=== PATIENT | male | born 2000 | race Caucasian/White ===

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

== ENCOUNTER 2021-07-01 14:15 | Emergency (ER) | payer OTHER, SELFPAY ==
[2021-07-01] VITALS (8 sets, daily range): BP systolic 116–126; BP diastolic 56–67; PULSE 62–88; RESP 19; TEMP 36.9; O2SAT 97–100; BMI 19.5
--- NOTE | 2021-07-01 14:43 | DI.RAD.S_ITS ---
PROCEDURE: XR CHEST 2V INDICATIONS: CP, SOB TECHNIQUE: 2 views of the chest were acquired. COMPARISON: None. FINDINGS: Surgical changes and devices: None. Lungs and pleura: Lungs are clear. No pleural effusions or pneumothorax. Mediastinum: Mediastinal contours are normal. Heart size is normal. Bones and chest wall: No suspicious bony abnormalities. Soft tissues appear unremarkable. IMPRESSION: Normal chest x-ray Approved by: Viktor Thomas M.D. on 07/01/2021 at 14:30
[2021-07-01] MEDS: ACETAMINOPHEN 325 MG TABLET 650 MG PO (14:53)
--- NOTE | 2021-07-01 14:58 | PC.NURSE ---
pt states 7-8 days ago began with a discomfort to R side of lung/chest area. pt states SOB as well that is constant and worse lying flat. pt with EKG completed and to xray. covid swab sent
[2021-07-01 15:03] LABS: COVID19 -Nasal RAPID Negative (Negative)
--- NOTE | 2021-07-03 16:58 | ED.CHESTPAIN ---
HPI - Chest Pain <Bipin Irving PA-C - Last Filed: 07/03/21 17:15> General Chief Complaint: Chest Pain Stated Complaint: Chest pains, SOB Time Seen by Provider: 07/01/21 14:31 Source: patient Mode of arrival: Family Vehicle Limitations: no limitations History of Present Illness HPI narrative: 20-year-old male with no reported significant past medical history presents to the ED with 1 week of left-sided chest tightness. Patient states that he returned from [place] 5 days ago, but while in [place] he developed left-sided chest tightness after a night of heavy drinking and being hung over. Patient also endorses that he felt anxious during the hangover, which then resolved in a few hours. Patient denies fever, chills, shortness of breath, nausea, vomiting, abdominal pain, dysuria, lightheadedness, dizziness, syncope. Denies family history of sudden or early cardiac deaths. Related Data Previous Rx's Medication Instructions Recorded loratadine 10 mg capsule 10 mg PO DAILY #20 cap 11/22/19 prednisone 20 mg tablet 20 mg PO DAILY #5 tab 11/22/19 azithromycin 250 mg tablet See Rx Instructions PO .COMPLEX #6 10/29/20 tab Allergies Allergy/AdvReac Type Severity Reaction Status Date / Time No Known Drug Allergies Allergy Verified 07/01/21 14:29 Review of Systems <Bipin Irving PA-C - Last Filed: 07/03/21 17:15> Constitutional Constitutional: Denies chills, Denies fatigue, Denies fever(s), Denies frequent falls, Denies lethargy and Denies weakness Eyes Eyes: Denies change in vision, Denies eye discharge, Denies irritation and Denies loss of vision ENT Ears, Nose, Mouth, and Throat: Denies change in voice, Denies dizziness, Denies neck pain, Denies sore throat and Denies throat swelling Cardiovascular Cardiovascular: Denies chest pain, Denies irregular heart rhythm, Denies lightheadedness, Denies palpitations, Denies dyspnea, Denies dyspnea on exertion and Denies orthopnea Respiratory Respiratory: Denies cough, Denies dyspnea, Denies dyspnea on exertion and Denies wheezing Gastrointestinal Gastrointestinal: Denies abdominal pain, Denies change in bowel habits, Denies diarrhea, Denies nausea and Denies vomiting Musculoskeletal Musculoskeletal: Denies neck pain and Denies numbness Integumentary/Breasts Skin/Breast: Denies pruritus, Denies erythema, Denies rash and Denies wounds Neurologic Neurologic: Denies behavioral changes, Denies confusion, Denies dizziness, Denies frequent falls, Denies loss of vision, Denies numbness and Denies weakness Psychiatric Psychiatric: Denies anxiety, Denies behavioral changes, Denies confusion, Denies depression, Denies homicidal ideation and Denies suicidal ideation Endocrine Endocrine: Denies fatigue, Denies flushing and Denies palpitations Hematologic/Lymphatic Hematologic/Lymphatic: Denies easy bruising Allergic/Immunologic Allergic/Immunologic: Denies urticaria, Denies throat swelling and Denies wheezing Patient History <Bipin Irving PA-C - Last Filed: 07/03/21 17:15> Medical History (Updated 07/01/21 @ 15:39 by Bipin Irving PA-C) Pharyngitis Skin rash Social History Smoking Status: Former smoker Smoking Status: Former smoker tobacco type: cigarettes alcohol intake frequency: 0-2 drinks per day Substance Use Type: does not use Exam <Bipin Irving PA-C - Last Filed: 07/03/21 17:15> Initial Vital Signs Initial Vital Signs: Vital Signs Blood Pressure 126/67 07/01/21 14:21 Const General: cooperative HENMT Head: normocephalic and atraumatic Ears: external ears normal and TM's normal bilaterally Nose: external nose normal and No nasal discharge Face and sinus: sinuses nontender, face symmetric, no sinus tenderness and No dry mucous membranes Mouth: oral mucosae normal and moist mucous membranes Teeth and gingiva: dentition normal Throat: tonsils normal and uvula midline Eyes General: appearance normal, both eyes and all related structures Eyelids: eyelids normal Conjunctivae: conjunctivae normal Sclera: sclerae normal Pupils: PERRL EOM: EOM intact bilaterally Neck Neck: normal visual inspection, trachea midline, No lymphadenopathy, No midline deformity and No JVD Lymphatic: No lymphedema Chest Chest: normal inspection of the chest Resp Effort & Inspection: normal respiratory effort, able to speak in complete sentences, no respiratory distress and no use of accessory muscles Auscultation: clear to auscultation bilaterally, no rales, no rhonchi and no wheezes Cardio Rate: regular rate Rhythm: regular rhythm Heart Sounds: no click, no gallops, no murmurs and no rubs Pulses: normal peripheral pulses GI Inspection: non-distended Palpation: soft, no hepatosplenomegaly, No guarding, No pulsatile mass and No tender Auscultation: normal bowel sounds Back/Spine/Pelvis Back: No CVA tenderness Cervical Spine: cervical ROM normal and No pain with cervical ROM Thoracic/Lumbar Spine: thoracic and lumbar spine normal to inspection Skin General: no rashes or lesions noted, No jaundice and No petechiae Neuro General: patient alert, patient oriented x3, gait normal and no focal motor deficits Speech: speech normal Extrem General: full ROM, no clubbing, cyanosis or edema, no pedal edema and no calf tenderness Psych Appearance: well kempt Mental Status: mental status grossly normal Attitude: cooperative Thought Content: normal and suicidality Judgment: judgment good <Ida Almeida DO - Last Filed: 07/05/21 07:40> Initial Vital Signs Initial Vital Signs: Vital Signs Blood Pressure 126/67 07/01/21 14:21 Course <Bipin Irving PA-C - Last Filed: 07/03/21 17:15> Course Course Narrative: X-ray and EKG without acute processes. COVID negative.Patient's symptoms improved with Tylenol. Will discharge home with ED return precautions Orders Ordered: Discontinued Medications Acetaminophen (Acetaminophen 325 Mg Tablet) 650 mg PO NOW ONE Stop: 07/01/21 14:44 Last Admin: 07/01/21 14:53 Dose: 650 mg Documented by: MARIO ALBERTO <Ida Almeida DO - Last Filed: 07/05/21 07:40> Orders Ordered: Discontinued Medications Acetaminophen (Acetaminophen 325 Mg Tablet) 650 mg PO NOW ONE Stop: 07/01/21 14:44 Last Admin: 07/01/21 14:53 Dose: 650 mg Documented by: MARIO ALBERTO MDM - Chest Pain <Bipin Irving PA-C - Last Filed: 07/03/21 17:15> Medical Records Data Attestation: I reviewed the patient's medical records. Lab Data Attestation: I reviewed the patient's lab results. Lab results narrative: COVID negative Labs: Lab Results 07/01/21 Range/Units 14:32 SARS-CoV-2 (PCR) Negative (Negative) Imaging Data Chest x-ray: My Impression: no acute cardiopulmonary processes. Radiologist's Impression: PROCEDURE:? XR CHEST 2V ? INDICATIONS:? CP, SOB ? TECHNIQUE:? 2 views of the chest were acquired.? ? COMPARISON:? None. ? FINDINGS:? ? Surgical changes and devices:? None.? ? Lungs and pleura:? Lungs are clear.? No pleural effusions or pneumothorax.? ? Mediastinum:? Mediastinal contours are normal.? Heart size is normal.? ? Bones and chest wall:? No suspicious bony abnormalities.? Soft tissues appear unremarkable.? ? IMPRESSION:? Normal chest x-ray ? ? ? Approved by: Viktor Thomas M.D. on 07/01/2021 at 14:30? ECG Data Interpretation: Normal sinus rhythm, no axis deviation, no ST T changes MDM Narrative Medical decision making narrative: 20-year-old male with no significant reported past medical history presents to the ED with 7 days of left-sided chest tightness. Concern for ACS versus pneumonia versus conid-19 vs GERD versus musculoskeletal pain. lungs bilaterally clear to auscultation on exam. Unlikely pneumonia. Will order EKG, chest x-ray to rule out ACS, pna. Will order a covid test. Will give Tylenol for pain. Will reassess. Likely discharge home. <Ida Almeida, DO - Last Filed: 07/05/21 07:40> Lab Data Labs: Lab Results 07/01/21 Range/Units 14:32 SARS-CoV-2 (PCR) Negative (Negative) ECG Data Interpretation: Normal sinus rhythm, no axis deviation, no ST T changes LEXY normal sinus rhythm rate 75 OR interval 130 QRS [address] changes no T-wave inversions no priors to compare Discharge Plan Departure Patient Disposition: Home Clinical Impression: Chest pain Qualifiers: Chest pain type: unspecified Qualified Code(s): R07.9 - Chest pain, unspecified Instructions: DI for Chest Pain Activity Restrictions/Additional Instructions: Follow-up with your registration manager as soon as possible. Your test was COVID negative in the ED today. Take antacids for stomach symptoms. Return to the ED if increasing chest pain or shortness of breath. Prescriptions: No Action prednisone 20 mg tablet 20 mg PO DAILY Qty: 5 RF: 0 loratadine 10 mg capsule 10 mg PO DAILY Qty: 20 RF: 0 azithromycin 250 mg tablet See Rx Instructions PO .COMPLEX Qty: 6 RF: 0 Referrals: Dov Pires MD [Primary Care Provider] - <Ida Almeida DO - Last Filed: 07/05/21 07:40> Cosign ED Attending Cosignature Attestation: I was immediately available in the department for consultation. Documentation has been reviewed. I agree with assessment and plan.
== END 2021-07-01 16:16 | disposition home or self-care (01) ==
PROVIDERS: Emergency Medicine; Emergency Provider Student in an Organized Health Care Education/Training Program; Family Provider Family Medicine; PCP Family Medicine
DX: R07.9 Chest pain, unspecified (principal); R06.02 Shortness of breath; Z20.822 Contact with and (suspected) exposure to COVID-19
CPT/HCPCS: 71046; 87635; 93005; 99284; C9803

== ENCOUNTER → 2022-02-22 12:35 | Outpatient (CLI) | payer OTHER, SELFPAY | PROVIDERS: Family Provider Family Medicine; PCP Family Medicine; Visit Provider Nurse Practitioner Family | DX: J02.9 Acute pharyngitis, unspecified (principal) | CPT/HCPCS: 87070 ==

== ENCOUNTER 2024-09-28 14:33 | Emergency (ER) | payer OTHER, SELFPAY ==
[2024-09-28 14:36] VITALS: BP 113/63; PULSE 64; RESP 16; TEMP 36.4; O2SAT 100; BMI 19.5
--- NOTE | 2024-09-28 14:40 | DI.RAD.S_ITS ---
PROCEDURE: XR CHEST 1V INDICATIONS: chest pain TECHNIQUE: One view of the chest was acquired. COMPARISON: [facility], CR, XR CHEST 2V, 07/01/2021, 14:48. FINDINGS: Surgical changes and devices: None. Lungs and pleura: Lungs are clear on the right but there appears to be a mild or early pneumonia left upper lobe tracking upwards and outwards from the upper left hilum.. No pleural effusions or pneumothorax. Mediastinum: Mediastinal contours appear normal. Heart size is normal. Bones and chest wall: No suspicious bony lesions. Overlying soft tissues appear unremarkable. IMPRESSION: Mild or early left upper lobe pneumonia, and central obstructing lesion would be unlikely in this young patient but follow-up plain films for resolution would be recommended. No effusion seen. Dictated by: Alexander Saavedra M.D. on 09/28/2024 at 15:27 Approved by: Alexander Saavedra M.D. on 09/28/2024 at 15:28
--- NOTE | 2024-09-28 14:44 | EKG_ITS ---
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
[2024-09-28 15:08] LABS: Add Manual Diff / Slide Review NO; Basophils Absolute Auto 100 /uL (0-100); Eosinophils Absolute Auto 300 /uL (0-450); Eosinophils Percent Auto 5.1 % (2-4); Hematocrit 40.1 % (41-53); Hemoglobin 13.8 g/dL (13.5-17.5); Lymphocytes Absolute Auto 1300 /uL (1100-4500); Lymphocytes Percent Auto 25.5 % (25-40); Mean Corpuscular HGB Conc 34.4 % (30-36); Mean Corpuscular Hemoglobin 30.1 PG (26-34); Mean Corpuscular Volume 87.5 fL (80-100); Monocytes Absolute Auto 500 /uL (0-900); Monocytes Percent Auto 10.1 % (3-14); Neutrophils Absolute Auto 3100 /uL (1500-7000); Neutrophils Percent Auto 58.3 % (50-75); Platelet Count 232 X10^3/uL (150-400); Red Blood Cell Count 4.58 X10^6/uL (4.5-5.9); Red Cell Distribution Width 11.4 % (11.6-14.8); White Blood Cell Count 5.2 X10^3/uL (4.5-11.0)
--- NOTE | 2024-09-28 15:11 | ED.CHESTPAIN ---
HPI - Chest Pain <Oriana Fischer PA-C - Last Filed: 09/28/24 18:05> General Chief Complaint: Chest Pain Stated Complaint: chest pain Time Seen by Provider: 09/28/24 15:11 History of Present Illness HPI narrative: Erick Perales is a pleasant 24-year-old male with no reported past medical history who presents to the emergency department for increasing episodes of chest pain over the last few days. Patient states over the last 2 years he gets episodes of sharp chest pain that radiate up into his jaw. States that these episodes are completely on precipitated and last for about 3-10 minutes and then resolve on their own. States that these episodes become more frequent in the last few days and today he would 5 of these episodes. He denies any known triggers. States that he is getting over a cold. Denies any personal or family history of cardiac disease, no family history of sudden cardiac . Symptoms occur at rest. He denies any problems with his breathing, cough, fevers, chills, abdominal pain, nausea, vomiting. He was previously evaluated for 1 of these episodes in 2020. Denies alcohol or drug use, he does vape daily. Related Data Previous Rx's Medication Instructions Recorded azithromycin 250 mg tablet See Rx Instructions PO .COMPLEX #6 02/22/22 tabs azithromycin 250 mg tablet See Rx Instructions PO .COMPLEX #6 12/03/22 tabs doxycycline hyclate 100 mg capsule 100 mg PO BID 5 days #10 caps 09/28/24 Allergies Allergy/AdvReac Type Severity Reaction Status Date / Time amoxicillin AdvReac Mild Verified 12/03/22 11:34 Review of Systems <Oriana Fischer PA-C - Last Filed: 09/28/24 18:05> Review of Systems ROS Unobtainable: All systems reviewed & are unremarkable except as noted in HPI and below Patient History <Oriana Fischer PA-C - Last Filed: 09/28/24 18:05> Medical History Pharyngitis Skin rash Social History Smoking Status: Former smoker Smoking Status: Former smoker tobacco type: cigarettes alcohol intake frequency: 0-2 drinks per day Substance Use Type: does not use Exam <Oriana Fischer PA-C - Last Filed: 09/28/24 18:05> Narrative Exam Narrative: GENERAL: 24 year old patient appears stated age. Well-developed patient, in no acute distress. HEAD: Atraumatic. Normocephalic. EYES: PERRL. Extraocular motions intact. No scleral icterus. No injection or drainage. ENT: Nose without bleeding, purulent drainage. Throat without erythema, tonsillar hypertrophy or exudate. Airway patent. NECK: Trachea midline. Cervical ROM intact. CARDIOVASCULAR: Regular rate and rhythm. RESPIRATORY: ?Nonlabored respirations. ?Speaking in clear, full sentences. ?Clear to auscultation. Breath sounds equal bilaterally. No wheezes, rales, or rhonchi. ? GASTROINTESTINAL: Abdomen soft, non-tender, nondistended. EXTREMITIES: No edema or joint tenderness. BACK: Nontender without deformity or crepitance. No flank tenderness. NEURO: AOx3. ?Clear speech. ?Moves all 4 extremities appropriately. SKIN: No rash or erythema of visible areas Initial Vital Signs Initial Vital Signs: Vital Signs Temperature 97.6 F 09/28/24 14:36 Pulse Rate 64 09/28/24 14:36 Respiratory Rate 16 09/28/24 14:36 Blood Pressure 113/63 09/28/24 14:36 Pulse Oximetry 100 09/28/24 14:36 Oxygen Delivery Method Room Air 09/28/24 14:36 <Daniel Montes MD - Last Filed: 09/28/24 19:36> Initial Vital Signs Initial Vital Signs: Vital Signs Temperature 97.6 F 09/28/24 14:36 Pulse Rate 64 09/28/24 14:36 Respiratory Rate 16 09/28/24 14:36 Blood Pressure 113/63 09/28/24 14:36 Pulse Oximetry 100 09/28/24 14:36 Oxygen Delivery Method Room Air 09/28/24 14:36 Scores <Oriana Fischer PA-C - Last Filed: 09/28/24 18:05> HEART Score Heart Score history: Slightly Suspicious Heart Score EKG: Normal Heart Score Age: < 45 years old Heart Score risk factors: 1-2 risk factors Heart Score troponin: < or = to normal limit Heart Score Total: 1 PERC Score Age greater than or equal to 50 years: No Heart rate greater than or equal to 100 bpm: No Room Air O2 Sat less than 95%: No Unilateral leg swelling: No Recent trauma or surgery: No Hemoptysis: No Prior PE or DVT: No Hormone Use: No Total PERC Score: 0 <Daniel Montes MD - Last Filed: 09/28/24 19:36> HEART Score Heart Score Total: 1 PERC Score Total PERC Score: 0 Course <Oriana Fischer PA-C - Last Filed: 09/28/24 18:05> Orders Ordered: ED Orders 09/28/24 14:40 XR chest 1V Stat EKG-12 Lead Stat 09/28/24 14:57 Complete Blood Count AUTO DIFF Stat Comprehensive Metabolic Panel Stat Lipase Stat Magnesium Stat NT-proBNP (BNP-Adult 18+) Stat PTT Partial Thromboplastin Mata Stat Prothrombin Time INR Stat Troponin & CK Cardiac Panel Stat 09/28/24 16:45 Trop I [Troponin I] Stat Discontinued Medications Doxycycline Hyclate (Doxycycline Hyclate 100 Mg Tablet) 100 mg PO NOW ONE Stop: 09/28/24 18:00 Last Admin: 09/28/24 18:03 Dose: 100 mg Documented By: BEA Sodium Chloride (Normal Saline 0.9%) 500 mls @ 500 mls/hr IV BOLUS ONE Stop: 09/28/24 16:52 Last Infusion: 09/28/24 17:28 Dose: Infused Documented By: Admin: 09/28/24 16:26 Dose: 500 mls/hr Documented By: BEA Vital Signs Vital signs: Vital Signs - 8 hr 09/28/24 14:36 09/28/24 15:30 09/28/24 16:00 Temperature 97.6 F Pulse Rate 64 64 60 Respiratory Rate 16 22 21 Blood Pressure 113/63 95/52 L 98/56 L Pulse Oximetry 100 99 99 Oxygen Delivery Method Room Air Room Air Room Air 09/28/24 17:00 09/28/24 17:50 09/28/24 18:14 Temperature 98.2 F Pulse Rate 59 L 53 L 55 L Respiratory Rate 19 20 20 Blood Pressure 103/57 L 94/51 L 98/55 L Pulse Oximetry 99 98 99 Oxygen Delivery Method Room Air Room Air Room Air <Daniel Montes MD - Last Filed: 09/28/24 19:36> Orders Ordered: ED Orders 09/28/24 14:40 XR chest 1V Stat EKG-12 Lead Stat 09/28/24 14:57 Complete Blood Count AUTO DIFF Stat Comprehensive Metabolic Panel Stat Lipase Stat Magnesium Stat NT-proBNP (BNP-Adult 18+) Stat PTT Partial Thromboplastin Mata Stat Prothrombin Time INR Stat Troponin & CK Cardiac Panel Stat 09/28/24 16:45 Trop I [Troponin I] Stat Discontinued Medications Doxycycline Hyclate (Doxycycline Hyclate 100 Mg Tablet) 100 mg PO NOW ONE Stop: 09/28/24 18:00 Last Admin: 09/28/24 18:03 Dose: 100 mg Documented By: RB Sodium Chloride (Normal Saline 0.9%) 500 mls @ 500 mls/hr IV BOLUS ONE Stop: 09/28/24 16:52 Last Infusion: 09/28/24 17:28 Dose: Infused Documented By: Admin: 09/28/24 16:26 Dose: 500 mls/hr Documented By: BEA Vital Signs Vital signs: Vital Signs - 8 hr 09/28/24 14:36 09/28/24 15:30 09/28/24 16:00 Temperature 97.6 F Pulse Rate 64 64 60 Respiratory Rate 16 22 21 Blood Pressure 113/63 95/52 L 98/56 L Pulse Oximetry 100 99 99 Oxygen Delivery Method Room Air Room Air Room Air 09/28/24 17:00 09/28/24 17:50 09/28/24 18:14 Temperature 98.2 F Pulse Rate 59 L 53 L 55 L Respiratory Rate 19 20 20 Blood Pressure 103/57 L 94/51 L 98/55 L Pulse Oximetry 99 98 99 Oxygen Delivery Method Room Air Room Air Room Air MDM - Chest Pain <Oriana Fischer PA-C - Last Filed: 09/28/24 18:05> Medical Records Data Attestation: I reviewed the patient's medical records. Medical records narrative: ED visit 07/03/2021 for chest pain. Negative EKG and x-ray at that time. Lab Data 09/28/24 14:57 09/28/24 14:57 Labs: Lab Results 09/28/24 09/28/24 Range/Units 14:57 16:45 WBC 5.2 (4.5-11.0) X10^3/uL RBC 4.58 (4.5-5.9) X10^6/uL Hgb 13.8 (13.5-17.5) g/dL Hct 40.1 L (41-53) % MCV 87.5 (80-100) fL MCH 30.1 (26-34) PG MCHC 34.4 (30-36) % RDW 11.4 L (11.6-14.8) % Plt Count 232 (150-400) X10^3/uL Neut % (Auto) 58.3 (50-75) % Lymph % (Auto) 25.5 (25-40) % Lane % (Auto) 10.1 (3-14) % Eos % (Auto) 5.1 H (2-4) % Baso % (Auto) 1.0 (0-2) % Neut # (Auto) 3100 (1947-2447) /uL Lymph # (Auto) 1300 (9805-8633) /uL Lane # (Auto) 500 (0-900) /uL Eos # (Auto) 300 (0-450) /uL Baso # (Auto) 100 (0-100) /uL PT 12.2 (9.4-12.5) SECONDS INR 1.1 (0.9-1.3) APTT 32 (25.1-36.5) SECONDS Sodium 137 (137-145) mmol/L Potassium 3.6 (3.4-5.1) mmol/L Chloride 102 (98-107) mmol/L Carbon Dioxide 27 (22-32) mmol/L BUN 13 (9-20) mg/dL Creatinine 0.73 (0.66-1.25) mg/dL Estimated GFR > 60 (>60) mL/min BUN/Creatinine Ratio 17.8 (6-22) Glucose 94 (70-100) mg/dL Calcium 9.1 (8.4-10.2) mg/dL Magnesium 2.0 (1.6-2.3) mg/dL Total Bilirubin 0.5 (0.2-1.3) mg/dL AST 44 (17-59) IU/L ALT 31 (<50) IU/L Alkaline Phosphatase 75 (38-126) U/L Total Creatine Kinase 765 H (55-170) U/L Troponin I < 0.012 < 0.012 (0.01-0.034) ng/mL NT-Pro-B Natriuret Pep 33 (<125) pg/mL Total Protein 7.5 (6.3-8.2) g/dL Albumin 4.6 (3.5-5.0) g/dL Globulin 2.9 (1.7-4.1) g/dL Albumin/Globulin Ratio 1.6 (1.0-2.8) Lipase 44 (23-300) U/L Urine Dip Bedside Urine Glucose Negative Bedside Urine Bilirubin - Negative Bedside Urine Ketone - Negative Urine Specific [place] 1.015 Bedside Urine Occult Blood - Negative Bedside Urine pH 6.5 Bedside Urine Protein - Negative Bedside Urine Urobilinogen - Negative Bedside Urine Nitrite - Negative Bedside Urine Leukocytes - Negative Esterase Imaging Data Chest x-ray: Radiologist's Impression: PROCEDURE: XR CHEST 1V INDICATIONS: chest pain TECHNIQUE: One view of the chest was acquired. COMPARISON: [facility], , XR CHEST 2V, 07/01/2021, 14:48. FINDINGS: Surgical changes and devices: None. Lungs and pleura: Lungs are clear on the right but there appears to be a mild or early pneumonia left upper lobe tracking upwards and outwards from the upper left hilum.. No pleural effusions or pneumothorax. Mediastinum: Mediastinal contours appear normal. Heart size is normal. Bones and chest wall: No suspicious bony lesions. Overlying soft tissues appear unremarkable. IMPRESSION: Mild or early left upper lobe pneumonia, and central obstructing lesion would be unlikely in this young patient but follow-up plain films for resolution would be recommended. No effusion seen. [facility] Narrative Medical decision making narrative: 24-year-old male presents to the emergency department for increased frequency of chest pain episodes. Differential diagnosis includes but is not limited to cardiac arrhythmia, myocarditis, pneumonia, ACS/MA, costochondritis, etc. On exam patient is in no acute distress, nontoxic appearing. Vital signs are all within normal limits. Lungs clear to auscultation, abdomen soft and nontender. He currently is pain-free however experienced an episode of chest pain minutes ago. He is on the environmental monitoring specialist and cardiac labs obtained. Chest x-ray reveals a mild or early left upper lobe pneumonia a central obstructing lesion would be unlikely in this young patient but follow up plain films resolution are recommended. Patient reports that he recently had a cold/viral URI and states his symptoms are improving however pneumonia is possible. He also vapes. Labs reveal normal WBC count, hematocrit and RDW slightly low at 40.1 and 11.4 respectively. 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 We will treat with IV fluids and oral fluids. Troponin is negative x 2. BNP is negative. Normal renal function. Patient's workup overall consistent with left upper lobe pneumonia. We will treat patient as community-acquired pneumonia with doxycycline 100 mg 2 times a day x5 days. Recommended patient has stopped vaping. Stressed the importance of the patient having a repeat chest x-ray in 1 month and prompt follow up with PCP. Patient verbalized understanding of all information and is stable for discharge. Strict ER return precautions discussed. <Daniel Montes MD - Last Filed: 09/28/24 19:36> Lab Data Labs: Lab Results 09/28/24 09/28/24 Range/Units 14:57 16:45 WBC 5.2 (4.5-11.0) X10^3/uL RBC 4.58 (4.5-5.9) X10^6/uL Hgb 13.8 (13.5-17.5) g/dL Hct 40.1 L (41-53) % MCV 87.5 (80-100) fL MCH 30.1 (26-34) PG MCHC 34.4 (30-36) % RDW 11.4 L (11.6-14.8) % Plt Count 232 (150-400) X10^3/uL Neut % (Auto) 58.3 (50-75) % Lymph % (Auto) 25.5 (25-40) % Lane % (Auto) 10.1 (3-14) % Eos % (Auto) 5.1 H (2-4) % Baso % (Auto) 1.0 (0-2) % Neut # (Auto) 3100 (6295-8324) /uL Lymph # (Auto) 1300 (0701-9220) /uL Lane # (Auto) 500 (0-900) /uL Eos # (Auto) 300 (0-450) /uL Baso # (Auto) 100 (0-100) /uL PT 12.2 (9.4-12.5) SECONDS INR 1.1 (0.9-1.3) APTT 32 (25.1-36.5) SECONDS Sodium 137 (137-145) mmol/L Potassium 3.6 (3.4-5.1) mmol/L Chloride 102 (98-107) mmol/L Carbon Dioxide 27 (22-32) mmol/L BUN 13 (9-20) mg/dL Creatinine 0.73 (0.66-1.25) mg/dL Estimated GFR > 60 (>60) mL/min BUN/Creatinine Ratio 17.8 (6-22) Glucose 94 (70-100) mg/dL Calcium 9.1 (8.4-10.2) mg/dL Magnesium 2.0 (1.6-2.3) mg/dL Total Bilirubin 0.5 (0.2-1.3) mg/dL AST 44 (17-59) IU/L ALT 31 (<50) IU/L Alkaline Phosphatase 75 (38-126) U/L Total Creatine Kinase 765 H (55-170) U/L Troponin I < 0.012 < 0.012 (0.01-0.034) ng/mL NT-Pro-B Natriuret Pep 33 (<125) pg/mL Total Protein 7.5 (6.3-8.2) g/dL Albumin 4.6 (3.5-5.0) g/dL Globulin 2.9 (1.7-4.1) g/dL Albumin/Globulin Ratio 1.6 (1.0-2.8) Lipase 44 (23-300) U/L Urine Dip Bedside Urine Glucose Negative Bedside Urine Bilirubin - Negative Bedside Urine Ketone - Negative Urine Specific [place] 1.015 Bedside Urine Occult Blood - Negative Bedside Urine pH 6.5 Bedside Urine Protein - Negative Bedside Urine Urobilinogen - Negative Bedside Urine Nitrite - Negative Bedside Urine Leukocytes - Negative Esterase Discharge Plan Departure Patient Disposition: Home Clinical Impression: Intermittent chest pain Pneumonia Qualifiers: Pneumonia type: due to unspecified organism Laterality: left Lung location: upper lobe of lung Qualified Code(s): J18.9 - Pneumonia, unspecified organism Instructions: DI for Pneumonia -- Adult Activity Restrictions/Additional Instructions: Dear Mr. Perales, Your diagnosis today is pneumonia, which is an infection of the lung. Please complete the full course of antibiotics. Please follow up with the primary care doctor and have a repeat chest x-ray in 1 month. Please follow up with your primary care doctor within the next 2-3 days for ER follow-up. (If you do not have a PCP you can call [phone]. ?to schedule an appointment with an [facility] Primary Care Provider) IF YOU DEVELOP ANY NEW OR WORSENING SYMPTOMS, RETURN TO THE ER! Please read the attached instructions, they highlight more specific treatments and interventions for you at home. Thank you for letting me participate in your care, Oriana Fischer PA-C Prescriptions: New doxycycline hyclate 100 mg capsule 100 mg PO BID 5 Days Qty: 10 0RF No Action azithromycin 250 mg tablet See Rx Instructions PO .COMPLEX Qty: 6 0RF Rx Instructions: For 250 mg dose pack: take 500 mg today (day 1), then 250 mg for 4 days (days 2-5) PO azithromycin 250 mg tablet See Rx Instructions PO .COMPLEX Qty: 6 0RF Rx Instructions: For 250 mg dose pack: take 500 mg today (day 1), then 250 mg for 4 days (days 2-5) PO Referrals: Dov Pires MD [Primary Care Provider] - Stand Alone Forms: Patient Portal/API/Survey ED Sign-out <Daniel Montes MD - Last Filed: 09/28/24 19:36> Cosign ED Attending Cosignature Attestation: I was immediately available in the department for consultation. This documentation has been reviewed and I agree with assessment and plan. Supervised by Daniel Montes MD
[2024-09-28 15:16] LABS: INR 1.1 (0.9-1.3); Prothrombin Time 12.2 SECONDS (9.4-12.5)
[2024-09-28 15:18] LABS: Alanine Aminotransferase 31 IU/L (<50); Albumin 4.6 g/dL (3.5-5.0); Albumin Globulin Ratio 1.6 (1.0-2.8); Alkaline Phosphatase 75 U/L (38-126); Aspartate Aminotransferase 44 IU/L (17-59); BUN Creatinine Ratio 17.8 (6-22); Bilirubin Total 0.5 mg/dL (0.2-1.3); Blood Urea Nitrogen 13 mg/dL (9-20); Calcium 9.1 mg/dL (8.4-10.2); Carbon Dioxide 27 mmol/L (22-32); Chloride 102 mmol/L (98-107); Creatine Kinase 765 U/L (55-170); Estimated Glomerular Filt Rate > 60 mL/min (>60); Globulin 2.9 g/dL (1.7-4.1); Glucose 94 mg/dL (70-100); HEMOLYSIS < 15 (0-50); Lipase 44 U/L (23-300); Potassium 3.6 mmol/L (3.4-5.1); Sodium 137 mmol/L (137-145); Total Protein 7.5 g/dL (6.3-8.2)
[2024-09-28 15:19] LABS: PTT Partial Thromboplastin Tim 32 SECONDS (25.1-36.5)
[2024-09-28 15:30] VITALS: BP 95/52; PULSE 64; RESP 22; O2SAT 99
[2024-09-28 15:30] LABS: NT-proBNP (BNP-Adult 18+) 33 pg/mL (<125); Troponin I < 0.012 ng/mL (0.01-0.034)
[2024-09-28 16:00] VITALS: BP 98/56; PULSE 60; RESP 21; O2SAT 99
[2024-09-28] MEDS: SODIUM CHLORIDE 0.9% 500 ML IV (16:26)
[2024-09-28 17:00] VITALS: BP 103/57; PULSE 59; RESP 19; O2SAT 99
[2024-09-28 17:38] LABS: Troponin I < 0.012 ng/mL (0.01-0.034)
[2024-09-28 17:50] VITALS: BP 94/51; PULSE 53; RESP 20; O2SAT 98
--- NOTE | 2024-09-28 17:58 | PC.NURSE ---
This RN provided patient with [facility] print out of phone number, location and the 5 providers currently accepting new patients.
[2024-09-28] MEDS: DOXYCYCLINE HYCLATE 100 MG TABLET PO (18:03)
[2024-09-28 18:14] VITALS: BP 98/55; PULSE 55; RESP 20; TEMP 36.8; O2SAT 99
== END 2024-09-28 18:14 | disposition home or self-care (01) ==
PROVIDERS: Emergency Medicine; Emergency Provider Physician Assistant; Family Provider Family Medicine; PCP Family Medicine
DX: R07.9 Chest pain, unspecified (principal); J18.9 Pneumonia, unspecified organism
CPT/HCPCS: 71045; 80053; 81003; 82550; 83690; 83735; 83880; 84484; 85025; 85610; 85730; 93005; 96360; 99284